=== PATIENT | female | born 1965 | race Two or more races ===

== ENCOUNTER → 2019-12-21 | Outpatient (CLI) | payer OTHER ==
--- NOTE | 2019-12-21 15:23 | RADIOLOGY REPORT (SQ) ---
EXAM DESCRIPTION: CT CHEST WITH IMAGES COMPLETED DATE/TIME: 12/21/2019 2:41 pm REASON FOR STUDY: J90 PLEURAL EFFUSION, NOT ELSEWHERE CLASSIFIED, R91.8 LUNG MASS, R91.1 NODU J90 P LEURAL EFFUSION, NOT ELSEWHERE CLASSIFIED COMPARISON: None. TECHNIQUE: CT scan of the chest performed using helical scanning technique with dynamic intravenous contrast injection. Images reviewed with lung, soft tissue and bone windows. Reconstructed coronal and sagittal MPR and MIP images reviewed. All images stored on PACS. All CT scanners at this facility use dose modulation, iterative reconstruction, and/or weight based d osing when appropriate to reduce radiation dose to as low as reasonably achievable (ALARA). [facility]: Dose Right [facility]: CareDose [facility]: Dose Right [facility]: Teradose 4D [facility]: MakieLab CONTRAST TYPE AND DOSE: contrast/concentration: Isovue 350.00 mmol/ml; Total Contrast Delivered: 80. 0 ml; Total Saline Delivered: 55.0 ml RENAL FUNCTION: Creatinine 0.7 RADIATION DOSE: CT Rad equipment meets quality standard of care and radiation dose reduction techniq ues were employed. CTDIvol: 3.7 mGy. DLP: 156 mGy-cm. . LIMITATIONS: None. FINDINGS: LUNGS AND PLEURA: There is chronic appearing right upper lobe volume loss and consolidatio n with associated bronchiectasis. No discrete endobronchial lesion identified. Additional linear co nsolidation along the bilateral major fissures. There is scattered tiny centrilobular opacities with in the apical right lower lobe. No pleural effusion or pneumothorax. Small bore tunneled right-side d chest tube in place. HILAR AND MEDIASTINAL STRUCTURES: Right suprahilar consolidation. Ill-defined left perihilar soft ti ssue (series 2, image 27) without discrete mass. No discrete mediastinal adenopathy. HEART AND VASCULAR STRUCTURES: No aneurysm or dissection. No central pulmonary emboli. No pericardi al effusion. HARDWARE: Tunneled right-sided small bore chest tube. UPPER ABDOMEN: No significant findings. Limited exam. THYROID AND OTHER SOFT TISSUES: No masses. No adenopathy. BONES: No acute bony abnormality. No suspicious lytic or blastic osseous lesions. OTHER: No other significant finding. IMPRESSION: 1. Right upper lobe consolidation and volume loss. No discrete endobronchial lesion id entified. Additional ill-defined asymmetric left parahilar soft tissue. Findings possibly post alexandra tment related although no priors are available for comparison. Recommend correlation with patient hi story and comparison with prior exams if available. If unavailable PET-CT could be considered for fu rther characterization of underlying lesions. 2. Mild right lower lobe centrilobular nodular opacities, likely infectious/inflammatory. 3. Tunneled small bore right-sided chest tube in place. No significant pleural effusion or pneumoth orax. TECHNICAL DOCUMENTATION: JOB ID: [id number] Quality ID # [id number]: Final reports with documentation of one or more dose reduction techniques (e.g., Au tomated exposure control, adjustment of the mA and/or kV according to patient size, use of iterative reconstruction technique) 2010 [employer]- All Rights Reserved Reading location - IP/workstation name: [email or web address]
== END ==
LOC: RAD 14:15
PROVIDERS: ATTEND Surgery
DX: J90 Pleural effusion, not elsewhere classified (principal); R91.8 Other nonspecific abnormal finding of lung field
CPT/HCPCS: 71260; 82565